=== PATIENT | female | born 2000 | race Caucasian/White ===

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

== ENCOUNTER → 2021-08-24 | Outpatient (REF) | payer BC ==
[2021-08-24 19:50] LABS: GC DNA AMPLIFICATION NEGATIVE (NEGATIVE)
== END ==
LOC: M LAB REF 17:22
PROVIDERS: ATTEND Family Medicine
DX: Z11.3 Encounter for screening for infections with a predominantly sexual mode of transmission (principal)

== ENCOUNTER → 2021-12-16 | Outpatient (REF) | payer BC | LOC: M WUC 11:45 | PROVIDERS: ATTEND Student in an Organized Health Care Education/Training Program | DX: R30.0 Dysuria (principal) ==